=== PATIENT | female | born 1990 | race Caucasian/White ===

== ENCOUNTER 2017-09-07 10:15 | Emergency (ER) | payer MEDICAID ==
[~2017-09-07 10:15] MED LIST: LEVOTHYROXIN0.025 M2 PO; LEXAPRO10 MG PO
[2017-09-07 12:41] VITALS: BP 110/64
== END 2017-09-07 12:41 | disposition home or self-care (01) ==
LOC: ED 10:15
DX: G40.309 Generalized idiopathic epilepsy and epileptic syndromes, not intractable, without status epilepticus (principal); R51 Headache; E03.9 Hypothyroidism, unspecified; Z88.8 Allergy status to other drugs, medicaments and biological substances
CPT/HCPCS: J1885